=== PATIENT | female | born 1940 | race Caucasian/White ===

== ENCOUNTER 2019-01-04 11:36 | Emergency (ER) | payer MEDICARE, MEDICAID ==
[~2019-01-04] VITALS: Ht 149.9 cm; Wt 50.9 kg
[~2019-01-04 11:36] MED LIST: ALEN70TA60 PO; ATOR10TA87 PO; BUPR75TA11 PO; CLON-528 PO; FERR325T28 PO; HYDR-3965 PO; LAMO100T89 PO; OMEP-84 PO; OXYB10TA PO; QUET25TA PO
--- NOTE | 2019-01-04 12:06 | NUR ---
I FAXED [facility] FOR INFORMATION ON PT.
[2019-01-04 13:04] LABS: BASOPHILS % (AUTO) 0.5 % (0-1); EOSINOPHILS # (AUTO) 0.2 X10'3 (0-0.9); EOSINOPHILS % (AUTO) 3.1 % (0-6); HEMATOCRIT 27.2 % (35.0-45.0); LYMPHOCYTES # (AUTO) 0.9 X10'3 (1.1-4.8); LYMPHOCYTES % (AUTO) 14.5 % (21-51); MEAN CORPUSCULAR HEMOGLOBIN 29.4 PG (27.0-31.0); MEAN CORPUSCULAR HGB CONC 32.9 g/dL (33.0-36.5); MEAN CORPUSCULAR VOLUME 89.4 FL (78-98); MEAN PLATELET VOLUME 6.3 FL (7.4-10.4); MONOCYTES # (AUTO) 0.6 X10'3 (0-0.9); MONOCYTES % (AUTO) 10.1 % (2-12); NEUTROPHILS # (AUTO) 4.5 X10'3 (1.8-7.7); NEUTROPHILS % (AUTO) 71.8 % (42-75); PLATELET COUNT 269 X10'3 (140-440); RED BLOOD COUNT 3.04 X10'6 (4.20-5.60); RED CELL DISTRIBUTION WIDTH 17.2 % (11.5-14.5); WHITE BLOOD COUNT 6.3 X10'3 (4.5-11.0)
[2019-01-04 13:18] LABS: ALANINE AMINOTRANSFERASE 18 U/L (12-78); ALBUMIN 2.7 G/DL (3.4-5.0); ALKALINE PHOSPHATASE 81 IU/L (46-116); ANION GAP 9 (8-16); ASPARTATE AMINO TRANSFERASE 19 U/L (10-37); BILIRUBIN,TOTAL 0.4 MG/DL (0.1-1.0); BLOOD UREA NITROGEN 28 MG/DL (7-18); BUN/CREATININE RATIO 22.4 (6.6-38.0); CALCIUM 8.1 MG/DL (8.5-10.1); CHLORIDE 102 MMOL/L (99-107); CREATININE 1.25 MG/DL (0.40-0.90); GLUCOSE 107 MG/DL (70-104); POTASSIUM 4.2 MMOL/L (3.5-5.1); SODIUM 137 MMOL/L (135-145); TOTAL CARBON DIOXIDE 26.3 MMOL/L (24-32); TOTAL PROTEIN 5.5 G/DL (6.4-8.2); eGFR 41 ML/MIN
[2019-01-04] MEDS ORDERED: IPRA4AER IH (13:24)
[2019-01-04] MEDS ORDERED: ALBU8.5H8 IH (13:24)
[2019-01-04 13:32] VITALS: BP 103/59
== END 2019-01-05 | disposition home or self-care (01) ==
LOC: ER 01-05 07:27
DX: D64.9 Anemia, unspecified (principal); R06.00 Dyspnea, unspecified; R19.7 Diarrhea, unspecified; K92.1 Melena; R53.1 Weakness; E78.00 Pure hypercholesterolemia, unspecified; M19.90 Unspecified osteoarthritis, unspecified site; M81.0 Age-related osteoporosis without current pathological fracture; F12.90 Cannabis use, unspecified, uncomplicated; F15.90 Other stimulant use, unspecified, uncomplicated; Z88.8 Allergy status to other drugs, medicaments and biological substances; Z79.899 Other long term (current) drug therapy; Z87.891 Personal history of nicotine dependence; Z87.440 Personal history of urinary (tract) infections; Z90.89 Acquired absence of other organs; Z90.710 Acquired absence of both cervix and uterus
CPT/HCPCS: 36415; 71046; 80053; 85025; 93005; 99284

== ENCOUNTER 2019-01-29 10:11 | Emergency (ER) | payer MEDICARE, MEDICAID ==
[~2019-01-29] VITALS: Ht 149.9 cm; Wt 48.6 kg
[~2019-01-29 10:11] MED LIST changes: +ALBU8.5H8 IH; +IPRA4AER IH
[2019-01-29 11:00] LABS: BASOPHILS # (AUTO) 0.1 X10'3 (0-0.2); BASOPHILS % (AUTO) 0.8 % (0-1); EOSINOPHILS % (AUTO) 0.6 % (0-6); HEMATOCRIT 24.4 % (35.0-45.0); HEMOGLOBIN 7.8 g/dl (12.0-16.0); LYMPHOCYTES # (AUTO) 1.3 X10'3 (1.1-4.8); LYMPHOCYTES % (AUTO) 16.3 % (21-51); MEAN CORPUSCULAR HGB CONC 32.2 g/dL (33.0-36.5); MEAN PLATELET VOLUME 6.3 FL (7.4-10.4); MONOCYTES # (AUTO) 0.5 X10'3 (0-0.9); MONOCYTES % (AUTO) 6.2 % (2-12); NEUTROPHILS # (AUTO) 6.2 X10'3 (1.8-7.7); NEUTROPHILS % (AUTO) 76.1 % (42-75); PLATELET COUNT 407 X10'3 (140-440); RED BLOOD COUNT 2.71 X10'6 (4.20-5.60); RED CELL DISTRIBUTION WIDTH 17.9 % (11.5-14.5); WHITE BLOOD COUNT 8.1 X10'3 (4.5-11.0)
[2019-01-29 11:13] LABS: PROTHROMBIN TIME 9.7 SECONDS (9.0-12.0)
[2019-01-29 11:16] LABS: ALANINE AMINOTRANSFERASE 25 U/L (12-78); ALKALINE PHOSPHATASE 70 IU/L (46-116); ANION GAP 7 (8-16); ASPARTATE AMINO TRANSFERASE 22 U/L (10-37); BILIRUBIN,TOTAL 0.2 MG/DL (0.1-1.0); BLOOD UREA NITROGEN 24 MG/DL (7-18); BUN/CREATININE RATIO 20.2 (6.6-38.0); CALCIUM 8.9 MG/DL (8.5-10.1); CHLORIDE 103 MMOL/L (99-107); CREATININE 1.19 MG/DL (0.40-0.90); GLUCOSE 117 MG/DL (70-104); POTASSIUM 4.3 MMOL/L (3.5-5.1); SODIUM 140 MMOL/L (135-145); TOTAL CARBON DIOXIDE 30.5 MMOL/L (24-32); TOTAL PROTEIN 6.1 G/DL (6.4-8.2); eGFR 44 ML/MIN
[2019-01-29] MEDS ORDERED: acetaminophen 325mg tablet PO ONE (11:20)
[2019-01-29 12:59] VITALS: BP 110/65
[2019-01-29 13:14] VITALS: BP 110/57
--- NOTE | 2019-01-29 13:28 | NUR ---
PATIENT'S S.O. VIDEOTAPING PATIENT IN ROOM. ASKED S.O. TO PLEASE STOP VIDEOTAPING PATIENT BECAUSE IT IS AGAINST OUR POLICY. WHEN S.O. RETURNED TO ROOM AND HELD THE PATIENT'S RIGHT HAND HER SHAKING OF HER RIGHT SIDE DECREASED SIGNIFICANTLY. PATIENT MADE A STATEMENT TO HER S.O. WHILE STILL SHAKING HER BODY I ASKED PATIENT IF SHE WANTED A BLANKET AND SHE SAID "NO" PATIENT AGAIN ASKED A QUESTION BY S.O. AND ANSWERED IT APPROPRIATELY
[2019-01-29 13:44] VITALS: BP 128/90
[2019-01-29 14:30] VITALS: BP 128/90
[2019-01-29 14:43] VITALS: BP 128/90
[2019-01-29 15:37] VITALS: BP 128/95
== END 2019-01-29 16:05 | disposition home or self-care (01) ==
LOC: ER 10:12
DX: D64.9 Anemia, unspecified (principal); E78.00 Pure hypercholesterolemia, unspecified; M19.90 Unspecified osteoarthritis, unspecified site; M81.0 Age-related osteoporosis without current pathological fracture; F12.90 Cannabis use, unspecified, uncomplicated; F15.90 Other stimulant use, unspecified, uncomplicated; Z90.710 Acquired absence of both cervix and uterus; Z98.890 Other specified postprocedural states; Z87.891 Personal history of nicotine dependence; Z88.8 Allergy status to other drugs, medicaments and biological substances; Z79.899 Other long term (current) drug therapy
CPT/HCPCS: 36415; 36430; 80053; 85025; 85610; 86885; 86900; 86901; 86920; 99291; P9016

== ENCOUNTER 2019-07-19 08:13 | Emergency (ER) | payer MEDICARE, MEDICAID ==
[~2019-07-19] VITALS: Ht 149.9 cm; Wt 54.5 kg
[~2019-07-19 08:13] MED LIST changes: -IPRA4AER IH; -OXYB10TA PO; +OXYB10TA2 PO
[2019-07-19 10:17] VITALS: BP 133/101
== END 2019-07-19 10:15 | disposition home or self-care (01) ==
LOC: ER 08:14
DX: S90.112A Contusion of left great toe without damage to nail, initial encounter (principal); E78.00 Pure hypercholesterolemia, unspecified; E07.9 Disorder of thyroid, unspecified; M19.90 Unspecified osteoarthritis, unspecified site; F31.9 Bipolar disorder, unspecified; M81.0 Age-related osteoporosis without current pathological fracture; F12.90 Cannabis use, unspecified, uncomplicated; F15.90 Other stimulant use, unspecified, uncomplicated; Z90.710 Acquired absence of both cervix and uterus; Z88.8 Allergy status to other drugs, medicaments and biological substances; Z79.899 Other long term (current) drug therapy; Z98.890 Other specified postprocedural states; Z95.1 Presence of aortocoronary bypass graft; X58.XXXA Exposure to other specified factors, initial encounter; Y93.89 Activity, other specified; Y92.89 Other specified places as the place of occurrence of the external cause; Y99.8 Other external cause status
CPT/HCPCS: 73630; 99283

== ENCOUNTER 2019-08-11 13:16 | Emergency (ER) | payer MEDICARE, MEDICAID ==
[~2019-08-11] VITALS: Ht 149.9 cm; Wt 72.0 kg
[~2019-08-11 13:16] MED LIST changes: +LAMO100T PO; -LAMO100T89 PO
[2019-08-11] MEDS ORDERED: normal saline 1000ML IV soln IVB ONE (13:25)
[2019-08-11 13:57] LABS: BASOPHILS # (AUTO) 0.1 X10'3 (0-0.2); BASOPHILS % (AUTO) 0.4 % (0-1); EOSINOPHILS % (AUTO) 0.1 % (0-6); HEMATOCRIT 38.8 % (35.0-45.0); HEMOGLOBIN 12.8 g/dl (12.0-16.0); LYMPHOCYTES # (AUTO) 1.6 X10'3 (1.1-4.8); LYMPHOCYTES % (AUTO) 9.7 % (21-51); MEAN CORPUSCULAR HEMOGLOBIN 29.7 PG (27.0-31.0); MEAN CORPUSCULAR VOLUME 90.2 FL (78-98); MEAN PLATELET VOLUME 6.5 FL (7.4-10.4); MONOCYTES # (AUTO) 0.5 X10'3 (0-0.9); MONOCYTES % (AUTO) 3.3 % (2-12); NEUTROPHILS # (AUTO) 14.2 X10'3 (1.8-7.7); NEUTROPHILS % (AUTO) 86.5 % (42-75); PLATELET COUNT 354 X10'3 (140-440); RED CELL DISTRIBUTION WIDTH 14.6 % (11.5-14.5); WHITE BLOOD COUNT 16.4 X10'3 (4.5-11.0)
[2019-08-11 14:09] LABS: ALANINE AMINOTRANSFERASE 23 U/L (12-78); ALBUMIN 3.9 G/DL (3.4-5.0); ALBUMIN/GLOBULIN RATIO 1.1 (1.1-1.5); ALKALINE PHOSPHATASE 86 IU/L (46-116); ANION GAP 10 (8-16); ASPARTATE AMINO TRANSFERASE 21 U/L (10-37); BILIRUBIN,TOTAL 0.4 MG/DL (0.1-1.0); BLOOD UREA NITROGEN 17 MG/DL (7-18); BUN/CREATININE RATIO 15.6 (6.6-38.0); CALCIUM 9.8 MG/DL (8.5-10.1); CHLORIDE 104 MMOL/L (99-107); CREATININE 1.09 MG/DL (0.40-0.90); ETHANOL < 0.010 GM/DL (0.0-0.010); GLUCOSE 112 MG/DL (70-104); LIPASE 51 U/L (73-393); MAGNESIUM 1.8 MG/DL (1.5-2.4); POTASSIUM 3.6 MMOL/L (3.5-5.1); SODIUM 141 MMOL/L (135-145); TOTAL CARBON DIOXIDE 26.8 MMOL/L (24-32); TOTAL PROTEIN 7.5 G/DL (6.4-8.2); eGFR 49 ML/MIN
[2019-08-11 14:28] LABS: D-DIMER 0.46 MG/L FEU (0-0.50); PARTIAL THROMBOPLASTIN TIME 28 SECONDS (22-32)
[2019-08-11] MEDS ORDERED: azithromycin 250mg tablet PO ONE (15:15)
[2019-08-11] MEDS ORDERED: ondansetron/PF 4mg/2ml inj IV ONE (15:15)
[2019-08-11 15:25] VITALS: BP 129/46
[2019-08-11] MEDS ORDERED: AZIT500T PO (15:26)
[2019-08-11] MEDS ORDERED: ONDA4TAB6 PO (15:26)
[2019-08-11 15:41] LABS: URINE AMPHETAMINE SCREEN NEGATIVE (Neg); URINE BARBITUATE SCREEN NEGATIVE (Neg); URINE BENZODIAZEPINES SCREEN NEGATIVE (Neg); URINE CANNABINOID SCREEN NEGATIVE (Neg); URINE COCAINE SCREEN NEGATIVE (Neg); URINE METHADONE SCREEN NEGATIVE (Neg); URINE OPIATE SCREEN NEGATIVE (Neg); URINE PHENCYCLIDINE SCREEN NEGATIVE (Neg)
== END 2019-08-11 16:38 | disposition home or self-care (01) ==
LOC: ER 13:18
DX: J18.9 Pneumonia, unspecified organism (principal); K21.9 Gastro-esophageal reflux disease without esophagitis; K44.9 Diaphragmatic hernia without obstruction or gangrene; E78.00 Pure hypercholesterolemia, unspecified; M19.90 Unspecified osteoarthritis, unspecified site; F31.9 Bipolar disorder, unspecified; M81.0 Age-related osteoporosis without current pathological fracture; F12.90 Cannabis use, unspecified, uncomplicated; F15.90 Other stimulant use, unspecified, uncomplicated; R79.1 Abnormal coagulation profile; Z90.710 Acquired absence of both cervix and uterus; Z90.89 Acquired absence of other organs; Z98.890 Other specified postprocedural states; Z87.891 Personal history of nicotine dependence; Z88.8 Allergy status to other drugs, medicaments and biological substances; Z79.899 Other long term (current) drug therapy
CPT/HCPCS: 36415; 71045; 73630; 80053; 80305; 80320; 83690; 83735; 84484; 85025; 85379; 85610; 85730; 93005; 96374; 99284; J2405; J7030

== ENCOUNTER 2019-10-25 14:23 | Emergency (ER) | payer MEDICARE, MEDICAID ==
[~2019-10-25] VITALS: Ht 149.9 cm; Wt 52.3 kg
[~2019-10-25 14:23] MED LIST changes: +ONDA4TAB6 PO
[2019-10-25] MEDS ORDERED: TETanus/Pertussis (Acell)/Diphther VAC/PF (Tdap-Adult) 0.5ml syringe IMVAC ONE (15:25)
--- NOTE | 2019-10-25 15:27 | NUR ---
TRANSPORT PHONE NUMBER [facility] [phone]
[2019-10-25 15:38] LABS: BASOPHILS # (AUTO) 0.1 X10'3 (0-0.2); BASOPHILS % (AUTO) 1.1 % (0-1); EOSINOPHILS # (AUTO) 0.1 X10'3 (0-0.9); EOSINOPHILS % (AUTO) 1.2 % (0-6); HEMATOCRIT 33.5 % (35.0-45.0); HEMOGLOBIN 11.2 g/dl (12.0-16.0); LYMPHOCYTES # (AUTO) 1.2 X10'3 (1.1-4.8); LYMPHOCYTES % (AUTO) 19.8 % (21-51); MEAN CORPUSCULAR HEMOGLOBIN 30.2 PG (27.0-31.0); MEAN CORPUSCULAR HGB CONC 33.4 g/dL (33.0-36.5); MEAN CORPUSCULAR VOLUME 90.4 FL (78-98); MEAN PLATELET VOLUME 6.2 FL (7.4-10.4); MONOCYTES # (AUTO) 0.5 X10'3 (0-0.9); MONOCYTES % (AUTO) 7.8 % (2-12); NEUTROPHILS # (AUTO) 4.3 X10'3 (1.8-7.7); NEUTROPHILS % (AUTO) 70.1 % (42-75); PLATELET COUNT 286 X10'3 (140-440); RED BLOOD COUNT 3.71 X10'6 (4.20-5.60); RED CELL DISTRIBUTION WIDTH 15.1 % (11.5-14.5); WHITE BLOOD COUNT 6.1 X10'3 (4.5-11.0)
[2019-10-25 15:49] LABS: ALANINE AMINOTRANSFERASE 26 U/L (12-78); ALBUMIN 2.8 G/DL (3.4-5.0); ALBUMIN/GLOBULIN RATIO 0.9 (1.1-1.5); ALKALINE PHOSPHATASE 87 IU/L (46-116); ANION GAP 7 (8-16); ASPARTATE AMINO TRANSFERASE 34 U/L (10-37); BILIRUBIN,TOTAL 0.3 MG/DL (0.1-1.0); BLOOD UREA NITROGEN 8 MG/DL (7-18); BUN/CREATININE RATIO 6.5 (6.6-38.0); CALCIUM 8.7 MG/DL (8.5-10.1); CHLORIDE 100 MMOL/L (99-107); CREATININE 1.23 MG/DL (0.40-0.90); GLUCOSE 114 MG/DL (70-104); SODIUM 138 MMOL/L (135-145); TOTAL CARBON DIOXIDE 31.4 MMOL/L (24-32); eGFR 42 ML/MIN
[2019-10-25 15:50] LABS: PARTIAL THROMBOPLASTIN TIME 28 SECONDS (22-32)
[2019-10-25] MEDS ORDERED: potassium Cl 20 mEq SR tablet PO ONE (16:10)
[2019-10-25 16:31] LABS: CLARITY,URINE CLOUDY (Clear); COLOR,URINE YELLOW (Yellow); GLUCOSE, URINE NEGATIVE (Neg); KETONES,URINE NEGATIVE (Neg); LEUKOCYTE ESTERASE ,URINE SMALL (Neg); NITRITES, URINE NEGATIVE (Neg); OCCULT BLOOD,URINE NEGATIVE (Neg); PH,URINE 7.5 (4.8-8.0); PROTEIN,URINE NEGATIVE (Neg); UA COLLECTION TYPE CLN CATCH MIDSTREAM; UROBILINOGEN,URINE 0.2 E.U/dL (0.2-1.0)
[2019-10-25 16:39] LABS: MUCUS STRANDS FEW /LPF (Neg); SQUAMOUS EPITHELIAL CELL,UR MODERATE /LPF (FEW)
[2019-10-25 16:41] LABS: RBC,URINE 0-2 /HPF (0-2)
[2019-10-25 16:42] LABS: AMORPHOUS PHOSPHATES 1+; BACTERIA,URINE FEW /HPF (Neg)
--- NOTE | 2019-10-25 17:41 | NUR ---
[facility] CALLED BACK STATING HE IS UNABLE TO PROVIDE TRANSPORT BACK TO THE FACILITY.
[2019-10-25 17:51] VITALS: BP 127/68
[2019-10-25] MEDS ORDERED: POTA10CA44 PO (18:01)
== END 2019-10-25 18:19 | disposition home or self-care (01) ==
LOC: ER 14:23
DX: S06.2X0A Diffuse traumatic brain injury without loss of consciousness, initial encounter (principal); S01.01XA Laceration without foreign body of scalp, initial encounter; E87.6 Hypokalemia; F12.90 Cannabis use, unspecified, uncomplicated; F15.90 Other stimulant use, unspecified, uncomplicated; E78.00 Pure hypercholesterolemia, unspecified; M19.90 Unspecified osteoarthritis, unspecified site; F31.9 Bipolar disorder, unspecified; R79.1 Abnormal coagulation profile; Z90.89 Acquired absence of other organs; Z98.890 Other specified postprocedural states; Z95.1 Presence of aortocoronary bypass graft; Z88.8 Allergy status to other drugs, medicaments and biological substances; Z79.899 Other long term (current) drug therapy; Z90.710 Acquired absence of both cervix and uterus; W18.39XA Other fall on same level, initial encounter; Y93.89 Activity, other specified; Y92.89 Other specified places as the place of occurrence of the external cause; Y99.8 Other external cause status
CPT/HCPCS: 12001; 36415; 70450; 71045; 80053; 81001; 82948; 85025; 85610; 85730; 87077; 87088; 87186; 90471; 90715; 93005; 99284

== ENCOUNTER 2019-11-26 15:57 | Inpatient (IN) | payer MEDICARE, MEDICAID ==
[~2019-11-26] VITALS: Ht 149.9 cm; Wt 45.9 kg
[~2019-11-26 15:57] MED LIST changes: -ALBU8.5H8 IH; -OXYB10TA2 PO; +OXYB10TA30 PO
--- NOTE | 2019-11-26 16:34 | NUR ---
spoke with poison control and they recommended obtaining: tylenol levels, aspirin and basic chem/metabolic panel as well as iron levels. check a baseline thyroid level. supportive care for tx. observe pt. for 12 hours especially for extended release of seroquel or until symptoms resolve.
--- NOTE | 2019-11-26 16:35 | NUR ---
pt is alert and oriented x4.
[2019-11-26 17:36] LABS: BASOPHILS % (AUTO) 0.3 % (0-1); EOSINOPHILS % (AUTO) 0.7 % (0-6); HEMATOCRIT 30.6 % (35.0-45.0); LYMPHOCYTES # (AUTO) 1.2 X10'3 (1.1-4.8); LYMPHOCYTES % (AUTO) 27.1 % (21-51); MEAN CORPUSCULAR HEMOGLOBIN 28.9 PG (27.0-31.0); MEAN CORPUSCULAR HGB CONC 32.6 g/dL (33.0-36.5); MEAN CORPUSCULAR VOLUME 88.5 FL (78-98); MEAN PLATELET VOLUME 7.3 FL (7.4-10.4); MONOCYTES # (AUTO) 0.3 X10'3 (0-0.9); MONOCYTES % (AUTO) 6.4 % (2-12); NEUTROPHILS # (AUTO) 2.8 X10'3 (1.8-7.7); NEUTROPHILS % (AUTO) 65.5 % (42-75); PLATELET COUNT 181 X10'3 (140-440); RED BLOOD COUNT 3.45 X10'6 (4.20-5.60); WHITE BLOOD COUNT 4.3 X10'3 (4.5-11.0)
[2019-11-26] MEDS ORDERED: LEVO50TA66 PO (17:41)
[2019-11-26] MEDS ORDERED: FERR324T PO (17:41)
[2019-11-26] MEDS ORDERED: DONE5TAB7 PO (17:41)
[2019-11-26] MEDS ORDERED: ATOR20TA PO (17:41)
[2019-11-26] MEDS ORDERED: DULO-31 PO (17:41)
[2019-11-26] MEDS ORDERED: LAMO200T10 PO (17:41)
[2019-11-26] MEDS ORDERED: QUET200T5 PO (17:41)
[2019-11-26] MEDS ORDERED: TRAZ-251 PO (17:41)
[2019-11-26 17:42] LABS: CLARITY,URINE CLEAR (Clear); COLOR,URINE STRAW (Yellow); UA COLLECTION TYPE CLN CATCH MIDSTREAM
[2019-11-26 17:43] LABS: GLUCOSE, URINE NEGATIVE (Neg); KETONES,URINE NEGATIVE (Neg); LEUKOCYTE ESTERASE ,URINE NEGATIVE (Neg); NITRITES, URINE NEGATIVE (Neg); OCCULT BLOOD,URINE NEGATIVE (Neg); PROTEIN,URINE NEGATIVE (Neg); UROBILINOGEN,URINE 0.2 E.U/dL (0.2-1.0)
[2019-11-26 17:54] LABS: ALANINE AMINOTRANSFERASE 17 U/L (12-78); ALBUMIN 2.7 G/DL (3.4-5.0); ALBUMIN/GLOBULIN RATIO 0.9 (1.1-1.5); ALKALINE PHOSPHATASE 64 IU/L (46-116); ANION GAP 10 (8-16); ASPARTATE AMINO TRANSFERASE 21 U/L (10-37); BILIRUBIN,TOTAL 0.2 MG/DL (0.1-1.0); BLOOD UREA NITROGEN 16 MG/DL (7-18); BUN/CREATININE RATIO 15.7 (6.6-38.0); CALCIUM 7.9 MG/DL (8.5-10.1); CHLORIDE 106 MMOL/L (99-107); CREATININE 1.02 MG/DL (0.40-0.90); GLUCOSE 84 MG/DL (70-104); POTASSIUM 3.4 MMOL/L (3.5-5.1); SODIUM 140 MMOL/L (135-145); TOTAL CARBON DIOXIDE 24.2 MMOL/L (24-32); TOTAL PROTEIN 5.6 G/DL (6.4-8.2); eGFR 52 ML/MIN
[2019-11-26 18:00] LABS: URINE AMPHETAMINE SCREEN NEGATIVE (Neg); URINE BARBITUATE SCREEN NEGATIVE (Neg); URINE BENZODIAZEPINES SCREEN NEGATIVE (Neg); URINE CANNABINOID SCREEN NEGATIVE (Neg); URINE COCAINE SCREEN NEGATIVE (Neg); URINE METHADONE SCREEN NEGATIVE (Neg); URINE OPIATE SCREEN NEGATIVE (Neg); URINE PHENCYCLIDINE SCREEN NEGATIVE (Neg)
[2019-11-26 18:03] LABS: ACETAMINOPHEN < 2.0 UG/ML (10-30)
[2019-11-26 18:05] LABS: % IRON SATURATION 20 % (11-46); IRON 37 UG/DL (49-151); TOTAL IRON BINDING CAPACITY 184 UG/DL (259-388)
[2019-11-26] MEDS ORDERED: ondansetron/PF 4mg/2ml inj IV ONE (18:15)
--- NOTE | 2019-11-26 18:33 | NUR ---
Patient is resting comfortably in bed. She is looking about the room, opening and closing her mouth and proding her tongue at random. She is alert and oriented x4 but is slow to respond. She is updated on POC. VSS.
--- NOTE | 2019-11-26 20:00 | NUR ---
Pt assisted to bathroom and into green scrubs.
--- NOTE | 2019-11-26 20:38 | NUR ---
Pt pulled out piv.
--- NOTE | 2019-11-26 21:14 | NUR ---
Pt resting comfortably, respirations normal, no s/s of distress.
--- NOTE | 2019-11-26 21:48 | NUR ---
Pt pulled out second piv.
--- NOTE | 2019-11-26 22:02 | NUR ---
Pt attempting to squigle out of bed multiple times. Pt redirected.
--- NOTE | 2019-11-26 22:02 | NUR ---
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
[2019-11-26] MEDS: LORazepam 1 MG tablet PO STA ×2 (22:19→22:34)
[2019-11-26] MEDS: diphenhydrAMINE 25mg capsule PO STA ×2 (22:19→22:34)
[2019-11-26] MEDS: LORazepam 2 mg/ml vial IM STA ×2 (22:40→22:44)
[2019-11-26] MEDS ORDERED: LORazepam 2 mg/ml vial ONE (22:45)
[2019-11-26] MEDS ORDERED: LORazepam 2 mg/ml vial IM STA (22:48)
--- NOTE | 2019-11-26 23:31 | NUR ---
contacted by poison control and they recommended repeat iron levels and repeat EKG.
--- NOTE | 2019-11-27 01:13 | NUR ---
The patient appears to be sleeping.
--- NOTE | 2019-11-27 04:22 | NUR ---
The patient appears to be sleeping
--- NOTE | 2019-11-27 07:18 | NUR ---
PT IS SLEEPING, RESPIRATIONS SPONTANEOUS, EVEN AND UNLABORED, NO S/S OF DISTRESS, DISCOMFORT OR AGITATION.
--- NOTE | 2019-11-27 08:34 | NUR ---
BRAD FROM POISON CONTROL JESSICA TOPETE RECOMMENDED PT OBSERVATION UNTIL PT IS BACK TO BASELINE, CALLED PT SPOUSE BUDD [phone] LEFT MESSAGE TO DISCUSS PT MEDICAL HX AND BASELINE MENTATION.
--- NOTE | 2019-11-27 08:35 | NUR ---
Patient assessment completed and she was found to have extremely dry mouth and some blood on her lips. Her mouth was cleaned well with wet swabs. When nurse first tried to give her a drink of water she only bit the straw and did not seem to be able to understand that she needed to suck on it and not bite. Then when some water was brought to her mouth in a cup she was able to drink but coughed on it. Cleaned patients mouth again and used glycerine swabs as well. Then gave patient water with a straw again and this time she was able to drink. She was noted to be very thirsty but when she started to drink too much too fast she started coughing again. Nurse had to pull straw away when she was giving more water if patient seemed to be taking too much too fast. She was able to answer to question of if shw had pain and she staed "no pain" and then when asked if she knew where she was she was able to state only what town "[place]". When asked other questions she was eith unable to answer or her speech was so garbled that staff was not able to undersatnd her.
--- NOTE | 2019-11-27 10:13 | NUR ---
DR BARTLETT UPDATED TO PT NOT BEING AT BASELINE MENTATION AFTER SPEAKING WITH SPOUSE BUDD, SPOUSE STATES PT PERFORMS ADL'S, HAS NOT MEMORY ISSUES, AND GOES TO [facility] FOR SOCIAL INTERACTION. DR BARTLETT TO RE-EVALUATE PT.
--- NOTE | 2019-11-27 10:23 | NUR ---
DR BARTLETT EVALUATED PT AND WANTS PT MOVED TO MAIN ED, ORDERS TO FOLLOW FOR LABS, CT, XRAY. KATHRINE CHARGE NURSE NOTIFIED OF PT STATUS CHANGE.
--- NOTE | 2019-11-27 11:13 | NUR ---
PT WENT TO CT PER ORDERS AND THEN WAS MOVED FROM BED 25 TO BED 06, CALLED TO GIVE REPORT TO HALEIGH GRANGER AND SHE WILL CALL ME BACK WHEN SHE IS DONE IN PT ROOM.
[2019-11-27 11:59] LABS: ALANINE AMINOTRANSFERASE 18 U/L (12-78); ALBUMIN/GLOBULIN RATIO 0.9 (1.1-1.5); ALKALINE PHOSPHATASE 63 IU/L (46-116); ANION GAP 9 (8-16); BILIRUBIN,TOTAL 0.4 MG/DL (0.1-1.0); BLOOD UREA NITROGEN 9 MG/DL (7-18); BUN/CREATININE RATIO 9.8 (6.6-38.0); CALCIUM 7.9 MG/DL (8.5-10.1); CHLORIDE 104 MMOL/L (99-107); CREATININE 0.92 MG/DL (0.40-0.90); GLUCOSE 94 MG/DL (70-104); SODIUM 137 MMOL/L (135-145); TOTAL CARBON DIOXIDE 24.5 MMOL/L (24-32); TOTAL PROTEIN 6.2 G/DL (6.4-8.2); eGFR 59 ML/MIN
[2019-11-27 12:02] LABS: TROPONIN I < 0.04 NG/ML (0.0-0.05)
[2019-11-27 12:04] LABS: BASOPHILS % (AUTO) 0.3 % (0-1); EOSINOPHILS % (AUTO) 0.3 % (0-6); HEMATOCRIT 32.7 % (35.0-45.0); HEMOGLOBIN 10.7 g/dl (12.0-16.0); LYMPHOCYTES # (AUTO) 1.3 X10'3 (1.1-4.8); LYMPHOCYTES % (AUTO) 19.8 % (21-51); MEAN CORPUSCULAR HGB CONC 32.7 g/dL (33.0-36.5); MEAN CORPUSCULAR VOLUME 88.5 FL (78-98); MEAN PLATELET VOLUME 7.4 FL (7.4-10.4); MONOCYTES # (AUTO) 0.4 X10'3 (0-0.9); MONOCYTES % (AUTO) 5.6 % (2-12); NEUTROPHILS # (AUTO) 4.8 X10'3 (1.8-7.7); PLATELET COUNT 239 X10'3 (140-440); RED CELL DISTRIBUTION WIDTH 14.2 % (11.5-14.5); WHITE BLOOD COUNT 6.6 X10'3 (4.5-11.0)
[2019-11-27 12:08] LABS: ASPARTATE AMINO TRANSFERASE 34 U/L (10-37); POTASSIUM 3.8 MMOL/L (3.5-5.1)
--- NOTE | 2019-11-27 12:10 | NUR ---
PTS SATS HAVE BEEN GOING DOWN TO 88-89% ON RA. PT PLACED ON 2 L O2 MD TRI DUPREE UPDATED ON FINDINGS AND PT TO CONTINUE O2 ON 2 NC
[2019-11-27 12:19] LABS: CLARITY,URINE CLEAR (Clear); COLOR,URINE YELLOW (Yellow); GLUCOSE, URINE NEGATIVE (Neg); KETONES,URINE NEGATIVE (Neg); LEUKOCYTE ESTERASE ,URINE NEGATIVE (Neg); NITRITES, URINE NEGATIVE (Neg); OCCULT BLOOD,URINE NEGATIVE (Neg); PROTEIN,URINE NEGATIVE (Neg); UROBILINOGEN,URINE 0.2 E.U/dL (0.2-1.0)
[2019-11-27 12:22] LABS: PARTIAL THROMBOPLASTIN TIME 30 SECONDS (22-32)
[2019-11-27] MEDS ORDERED: normal saline 1000ML IV soln IV ONE (12:25)
[2019-11-27] MEDS ORDERED: CefTRIAXone 2gm/D5W 50ml 50 ML IV ONE (12:25)
[2019-11-27 12:35] LABS: UA COLLECTION TYPE CLN CATCH MIDSTREAM
[2019-11-27 12:45] LABS: LACTIC SEPSIS 0.7 MMOL/L (0.4-2.0)
[2019-11-27] MEDS ORDERED: haloperidol lactate 5mg/ml inj IM PRN (15:10)
[2019-11-27] MEDS ORDERED: LORazepam 2 mg/ml vial IV PRN (15:10)
[2019-11-27] MEDS ORDERED: magnesium hydroxide 30ml (MOM) UD suspension PO PRN (15:10)
[2019-11-27] MEDS ORDERED: ondansetron/PF 4mg/2ml inj IV PRN (15:10)
[2019-11-27] MEDS ORDERED: mag hydrox/Alum hydrox/simeth 30ml oral suspension PO PRN (15:10)
[2019-11-27] MEDS ORDERED: acetaminophen 325mg tablet PO PRN (15:10)
--- NOTE | 2019-11-27 15:31 | NUR ---
Justo Tinoco called to inquire after his . Staff advised that pt is waiting to be admitted to the floor, she is currently in bed #6 in ED. Justo Tinoco [phone]
[2019-11-27] MEDS: normal saline 1000ml 1,000 ML IV SCH (16:06)
[2019-11-27 18:40] VITALS: BP 147/72
[2019-11-27] MEDS: oxybutynin 5mg tablet PO SCH (20:00)
[2019-11-27] MEDS: donepezil 5mg tablet PO SCH (21:00)
[2019-11-27] MEDS: atorvastatin 20mg tablet PO SCH (21:00)
[2019-11-27] MEDS: lamoTRIgine 100mg tablet PO SCH (21:00)
[2019-11-27] MEDS: ferrous gluconate 324mg tablet PO SCH (21:00)
[2019-11-27] MEDS: traZODone 50mg tablet PO SCH (21:00)
[2019-11-27] MEDS: quetiapine 100mg tablet PO SCH (21:00)
[2019-11-27] MEDS: heparin, porcine 5000 units/ml vial SQ SCH ×2 (21:09→21:12)
[2019-11-27 22:00] VITALS: BP 136/70
[2019-11-28] MEDS: normal saline 1000ml 1,000 ML IV SCH ×3 (01:00→21:02)
[2019-11-28 02:00] VITALS: BP 124/60
[2019-11-28 06:00] VITALS: BP 129/70
[2019-11-28 06:21] LABS: BASOPHILS % (AUTO) 0.6 % (0-1); EOSINOPHILS # (AUTO) 0.1 X10'3 (0-0.9); EOSINOPHILS % (AUTO) 1.4 % (0-6); HEMATOCRIT 33.7 % (35.0-45.0); HEMOGLOBIN 11.2 g/dl (12.0-16.0); LYMPHOCYTES # (AUTO) 1.8 X10'3 (1.1-4.8); LYMPHOCYTES % (AUTO) 35.8 % (21-51); MEAN CORPUSCULAR HEMOGLOBIN 29.2 PG (27.0-31.0); MEAN CORPUSCULAR HGB CONC 33.2 g/dL (33.0-36.5); MEAN PLATELET VOLUME 6.7 FL (7.4-10.4); MONOCYTES # (AUTO) 0.3 X10'3 (0-0.9); MONOCYTES % (AUTO) 6.8 % (2-12); NEUTROPHILS # (AUTO) 2.8 X10'3 (1.8-7.7); NEUTROPHILS % (AUTO) 55.4 % (42-75); PLATELET COUNT 264 X10'3 (140-440); RED BLOOD COUNT 3.83 X10'6 (4.20-5.60); RED CELL DISTRIBUTION WIDTH 14.2 % (11.5-14.5); WHITE BLOOD COUNT 5.1 X10'3 (4.5-11.0)
--- NOTE | 2019-11-28 06:22 | NUR ---
Problems reprioritized. Patient report given, questions answered & plan of care reviewed with ELKIN BRUSH.
--- NOTE | 2019-11-28 06:23 | NUR ---
Patient in room PCU 3011. I have received report from ELKIN Dixon and had the opportunity to ask questions and assume patient care.
[2019-11-28 06:38] LABS: ALBUMIN 2.9 G/DL (3.4-5.0); ANION GAP 10 (8-16); BLOOD UREA NITROGEN 6 MG/DL (7-18); BUN/CREATININE RATIO 7.3 (6.6-38.0); CALCIUM 7.5 MG/DL (8.5-10.1); CHLORIDE 103 MMOL/L (99-107); CREATININE 0.82 MG/DL (0.40-0.90); GLUCOSE 70 MG/DL (70-104); POTASSIUM 3.1 MMOL/L (3.5-5.1); SODIUM 137 MMOL/L (135-145); TOTAL CARBON DIOXIDE 23.7 MMOL/L (24-32); eGFR 67 ML/MIN
[2019-11-28] MEDS: duloxetine 30mg CAPSULE.DR PO SCH (08:34)
[2019-11-28] MEDS: levoTHYROXINE 25mcg tablet PO SCH (08:34)
[2019-11-28] MEDS: ferrous gluconate 324mg tablet PO SCH ×3 (08:34→20:56)
[2019-11-28] MEDS: oxybutynin 5mg tablet PO SCH ×2 (08:35→20:56)
--- NOTE | 2019-11-28 08:48 | NUR ---
Paged Kate regarding needing potassium replacement protocol PAGER ID: [phone] MESSAGE: [phone]: Teri Wylie: Pt does not have potassium replacement orders. Pt morning potassium was 3.1. Kindly advise! -Jailyn [phone]
[2019-11-28] MEDS ORDERED: potassium Cl 20 mEq SR tablet PO PRN (08:50)
[2019-11-28] MEDS ORDERED: potassium CL 10mEq/100ml bag 100 ML IV PRN (08:50)
[2019-11-28] MEDS ORDERED: magnesium 4gm in 100ml NS 100 ML IV PRN (08:50)
[2019-11-28] MEDS: K and/or MAG REPLACEMENT MC SCH ×2 (09:42→20:00)
--- NOTE | 2019-11-28 09:45 | NUR ---
New orders to place pt on low-fat, mechanical soft diet from NPO status. Completed a bedside swallow, pt did fine.
[2019-11-28] MEDS: potassium Cl 20 mEq SR tablet PO PRN ×3 (10:42→20:57)
[2019-11-28 12:00] VITALS: BP 108/64
[2019-11-28 15:00] VITALS: BP 137/85
[2019-11-28 18:00] VITALS: BP 135/104
--- NOTE | 2019-11-28 18:25 | NUR ---
Problems reprioritized. Patient report given, questions answered & plan of care reviewed with ELKIN Lopez.
--- NOTE | 2019-11-28 18:25 | NUR ---
Patient in room PCU 3011. I have received report from ELKIN Glaser and had the opportunity to ask questions and assume patient care. Patient is alert and oriented x 4, denies CP, SOB, dizziness, and n/v. Patient also denied suicidal thoughts. Patient has sitter in place
[2019-11-28] MEDS: lamoTRIgine 100mg tablet PO SCH (20:55)
[2019-11-28] MEDS: donepezil 5mg tablet PO SCH (20:56)
[2019-11-28] MEDS: atorvastatin 20mg tablet PO SCH (20:56)
[2019-11-28] MEDS: traZODone 50mg tablet PO SCH (20:57)
[2019-11-28] MEDS: quetiapine 100mg tablet PO SCH (21:01)
[2019-11-28] MEDS: heparin, porcine 5000 units/ml vial SQ SCH (21:01)
[2019-11-28 22:00] VITALS: BP 131/57
[2019-11-29 02:00] VITALS: BP 134/84
[2019-11-29 05:33] LABS: ALBUMIN 2.3 G/DL (3.4-5.0); ANION GAP 4 (8-16); BLOOD UREA NITROGEN 8 MG/DL (7-18); BUN/CREATININE RATIO 9.6 (6.6-38.0); CALCIUM 7.8 MG/DL (8.5-10.1); CHLORIDE 114 MMOL/L (99-107); CREATININE 0.83 MG/DL (0.40-0.90); GLUCOSE 90 MG/DL (70-104); MAGNESIUM 1.6 MG/DL (1.5-2.4); POTASSIUM 4.6 MMOL/L (3.5-5.1); SODIUM 143 MMOL/L (135-145); TOTAL CARBON DIOXIDE 25.5 MMOL/L (24-32); eGFR 66 ML/MIN
[2019-11-29 05:36] LABS: BASOPHILS % (AUTO) 0.8 % (0-1); EOSINOPHILS # (AUTO) 0.2 X10'3 (0-0.9); EOSINOPHILS % (AUTO) 5.1 % (0-6); HEMATOCRIT 31.1 % (35.0-45.0); HEMOGLOBIN 10.3 g/dl (12.0-16.0); LYMPHOCYTES # (AUTO) 1.6 X10'3 (1.1-4.8); LYMPHOCYTES % (AUTO) 38.5 % (21-51); MEAN CORPUSCULAR HEMOGLOBIN 29.2 PG (27.0-31.0); MEAN CORPUSCULAR HGB CONC 33.1 g/dL (33.0-36.5); MEAN CORPUSCULAR VOLUME 88.3 FL (78-98); MEAN PLATELET VOLUME 7.1 FL (7.4-10.4); MONOCYTES # (AUTO) 0.4 X10'3 (0-0.9); MONOCYTES % (AUTO) 8.8 % (2-12); NEUTROPHILS % (AUTO) 46.8 % (42-75); PLATELET COUNT 252 X10'3 (140-440); RED BLOOD COUNT 3.52 X10'6 (4.20-5.60); WHITE BLOOD COUNT 4.3 X10'3 (4.5-11.0)
[2019-11-29 06:00] VITALS: BP 136/69
--- NOTE | 2019-11-29 06:17 | NUR ---
Patient in room PCU 3011. I have received report from ELKIN Lopez and had the opportunity to ask questions and assume patient care.
--- NOTE | 2019-11-29 06:19 | NUR ---
Problems reprioritized. Patient report given, questions answered & plan of care reviewed with ELKIN Glaser. Patient stable at shift change
[2019-11-29] MEDS: K and/or MAG REPLACEMENT MC SCH ×2 (08:00→20:00)
[2019-11-29] MEDS: heparin, porcine 5000 units/ml vial SQ SCH ×2 (09:39→20:20)
[2019-11-29] MEDS: levoTHYROXINE 25mcg tablet PO SCH (09:40)
[2019-11-29] MEDS: duloxetine 30mg CAPSULE.DR PO SCH (09:40)
[2019-11-29] MEDS: oxybutynin 5mg tablet PO SCH ×3 (09:40→20:17)
[2019-11-29] MEDS: ferrous gluconate 324mg tablet PO SCH ×3 (09:40→20:17)
[2019-11-29] MEDS: normal saline 1000ml 1,000 ML IV SCH ×2 (09:41→17:10)
[2019-11-29 15:00] VITALS: BP 141/78
--- NOTE | 2019-11-29 16:39 | NUR ---
Paged Kate PAGER ID: [phone] MESSAGE: [phone]: Teri Wylie: Currently awaiting placement! Jailyn -[phone]
[2019-11-29 18:00] VITALS: BP 129/72
--- NOTE | 2019-11-29 18:23 | NUR ---
Problems reprioritized. Patient report given, questions answered & plan of care reviewed with ELKIN Vernon.
--- NOTE | 2019-11-29 19:00 | NUR ---
Patient in room PCU 3011. I have received report from am rn and had the opportunity to ask questions and assume patient care.
[2019-11-29] MEDS: donepezil 5mg tablet PO SCH (20:16)
[2019-11-29] MEDS: traZODone 50mg tablet PO SCH (20:17)
[2019-11-29] MEDS: lamoTRIgine 100mg tablet PO SCH (20:17)
[2019-11-29] MEDS: atorvastatin 20mg tablet PO SCH (20:17)
[2019-11-29] MEDS: quetiapine 100mg tablet PO SCH (20:18)
[2019-11-29 22:00] VITALS: BP 95/51
[2019-11-30 02:00] VITALS: BP 92/51
[2019-11-30] MEDS: normal saline 1000ml 1,000 ML IV SCH ×3 (03:38→23:10)
[2019-11-30 05:28] LABS: BASOPHILS % (AUTO) 0.6 % (0-1); EOSINOPHILS # (AUTO) 0.2 X10'3 (0-0.9); EOSINOPHILS % (AUTO) 5.2 % (0-6); HEMATOCRIT 32.2 % (35.0-45.0); HEMOGLOBIN 10.4 g/dl (12.0-16.0); LYMPHOCYTES # (AUTO) 1.7 X10'3 (1.1-4.8); LYMPHOCYTES % (AUTO) 44.8 % (21-51); MEAN CORPUSCULAR HEMOGLOBIN 28.9 PG (27.0-31.0); MEAN CORPUSCULAR HGB CONC 32.5 g/dL (33.0-36.5); MEAN CORPUSCULAR VOLUME 88.9 FL (78-98); MEAN PLATELET VOLUME 6.7 FL (7.4-10.4); MONOCYTES # (AUTO) 0.4 X10'3 (0-0.9); MONOCYTES % (AUTO) 9.7 % (2-12); NEUTROPHILS # (AUTO) 1.5 X10'3 (1.8-7.7); NEUTROPHILS % (AUTO) 39.7 % (42-75); PLATELET COUNT 229 X10'3 (140-440); RED BLOOD COUNT 3.62 X10'6 (4.20-5.60); RED CELL DISTRIBUTION WIDTH 14.4 % (11.5-14.5); WHITE BLOOD COUNT 3.9 X10'3 (4.5-11.0)
[2019-11-30 05:39] LABS: ALBUMIN 2.3 G/DL (3.4-5.0); ANION GAP 7 (8-16); BLOOD UREA NITROGEN 5 MG/DL (7-18); BUN/CREATININE RATIO 5.2 (6.6-38.0); CALCIUM 8.4 MG/DL (8.5-10.1); CHLORIDE 113 MMOL/L (99-107); CREATININE 0.96 MG/DL (0.40-0.90); GLUCOSE 91 MG/DL (70-104); MAGNESIUM 1.6 MG/DL (1.5-2.4); POTASSIUM 3.7 MMOL/L (3.5-5.1); SODIUM 143 MMOL/L (135-145); TOTAL CARBON DIOXIDE 22.9 MMOL/L (24-32); eGFR 56 ML/MIN
--- NOTE | 2019-11-30 06:20 | NUR ---
Patient in room PCU 3011. I have received report from ELKIN Vernon and had the opportunity to ask questions and assume patient care.
[2019-11-30 07:00] VITALS: BP 104/60
[2019-11-30] MEDS: K and/or MAG REPLACEMENT MC SCH ×2 (08:52→20:00)
[2019-11-30] MEDS: heparin, porcine 5000 units/ml vial SQ SCH ×2 (08:53→20:52)
[2019-11-30] MEDS: levoTHYROXINE 25mcg tablet PO SCH (08:53)
[2019-11-30] MEDS: ferrous gluconate 324mg tablet PO SCH ×3 (08:54→20:47)
[2019-11-30] MEDS: oxybutynin 5mg tablet PO SCH ×3 (08:54→20:47)
[2019-11-30] MEDS: duloxetine 30mg CAPSULE.DR PO SCH (08:54)
--- NOTE | 2019-11-30 10:41 | NUR ---
Spoke to ELKIN Sheriff at [facility] in [place] to give report on pt. Awaiting call from facility to admit pt
[2019-11-30 11:00] VITALS: BP 117/64
[2019-11-30 15:00] VITALS: BP 112/63
--- NOTE | 2019-11-30 15:45 | NUR ---
Paged Violette PAGER ID: [phone] MESSAGE: [phone]: Ila Wylie - Pt c/o headaches. May pt receive Tylenol? Kindly advise! - Jailyn [phone]
--- NOTE | 2019-11-30 16:25 | NUR ---
Paged Kate PAGER ID: [phone] MESSAGE: [phone]: Teri Wylie - Pt c/o headaches. May pt receive Tylenol? Kindly advise! - Jailyn [phone]
--- NOTE | 2019-11-30 16:26 | NUR ---
New orders for 650mg Tylenol PRN 6 hrs from Kate
[2019-11-30] MEDS ORDERED: acetaminophen 325mg tablet PO PRN (16:30)
[2019-11-30 18:00] VITALS: BP 134/65
--- NOTE | 2019-11-30 18:00 | NUR ---
Received report from Jailyn GRANGER. assumed care of patient.
--- NOTE | 2019-11-30 18:06 | NUR ---
Problems reprioritized. Patient report given, questions answered & plan of care reviewed with ELKIN Pop.
[2019-11-30] MEDS: atorvastatin 20mg tablet PO SCH (20:47)
[2019-11-30] MEDS: donepezil 5mg tablet PO SCH (20:47)
[2019-11-30] MEDS: lamoTRIgine 100mg tablet PO SCH (20:47)
[2019-11-30] MEDS: traZODone 50mg tablet PO SCH (20:47)
[2019-11-30] MEDS: quetiapine 100mg tablet PO SCH (20:49)
[2019-11-30 22:00] VITALS: BP 101/51
[2019-12-01] MEDS: normal saline 1000ml 1,000 ML IV SCH ×3 (00:30→20:25)
[2019-12-01 02:00] VITALS: BP 97/51
[2019-12-01 05:38] LABS: BASOPHILS % (AUTO) 0.6 % (0-1); EOSINOPHILS # (AUTO) 0.2 X10'3 (0-0.9); EOSINOPHILS % (AUTO) 5.6 % (0-6); HEMATOCRIT 30.2 % (35.0-45.0); HEMOGLOBIN 10.2 g/dl (12.0-16.0); LYMPHOCYTES # (AUTO) 1.7 X10'3 (1.1-4.8); LYMPHOCYTES % (AUTO) 39.7 % (21-51); MEAN CORPUSCULAR HGB CONC 33.7 g/dL (33.0-36.5); MEAN CORPUSCULAR VOLUME 89.1 FL (78-98); MEAN PLATELET VOLUME 6.8 FL (7.4-10.4); MONOCYTES # (AUTO) 0.4 X10'3 (0-0.9); MONOCYTES % (AUTO) 9.4 % (2-12); NEUTROPHILS # (AUTO) 1.9 X10'3 (1.8-7.7); NEUTROPHILS % (AUTO) 44.7 % (42-75); PLATELET COUNT 249 X10'3 (140-440); RED BLOOD COUNT 3.39 X10'6 (4.20-5.60); RED CELL DISTRIBUTION WIDTH 14.4 % (11.5-14.5); WHITE BLOOD COUNT 4.3 X10'3 (4.5-11.0)
[2019-12-01 05:44] LABS: ALBUMIN 2.2 G/DL (3.4-5.0); ANION GAP 8 (8-16); BLOOD UREA NITROGEN 6 MG/DL (7-18); BUN/CREATININE RATIO 6.7 (6.6-38.0); CALCIUM 8.1 MG/DL (8.5-10.1); CHLORIDE 112 MMOL/L (99-107); GLUCOSE 89 MG/DL (70-104); MAGNESIUM 1.5 MG/DL (1.5-2.4); POTASSIUM 3.7 MMOL/L (3.5-5.1); SODIUM 144 MMOL/L (135-145); TOTAL CARBON DIOXIDE 24.2 MMOL/L (24-32); eGFR 60 ML/MIN
--- NOTE | 2019-12-01 06:00 | NUR ---
Gave report to Rafaela GRANGER
--- NOTE | 2019-12-01 06:30 | NUR ---
Patient in room PCU 3011. I have received report from Kiesha GRANGER and had the opportunity to ask questions and assume patient care.
[2019-12-01 07:00] VITALS: BP 121/62
[2019-12-01] MEDS: K and/or MAG REPLACEMENT MC SCH ×2 (08:00→20:00)
[2019-12-01] MEDS: ferrous gluconate 324mg tablet PO SCH ×3 (08:25→20:14)
[2019-12-01] MEDS: duloxetine 30mg CAPSULE.DR PO SCH (08:26)
[2019-12-01] MEDS: oxybutynin 5mg tablet PO SCH ×3 (08:26→20:14)
[2019-12-01] MEDS: levoTHYROXINE 25mcg tablet PO SCH (08:26)
[2019-12-01] MEDS: heparin, porcine 5000 units/ml vial SQ SCH ×2 (08:26→20:15)
[2019-12-01 11:00] VITALS: BP 144/75
--- NOTE | 2019-12-01 11:04 | NUR ---
Received verbal order to remove olaf from head which occured from a fall over a month ago. 11 olaf removed without incident. Patient did not complain about pain during procedure. Noted large scab. Skin intact. No bleeding noted. Will continue to monitor.
[2019-12-01 15:00] VITALS: BP 123/69
[2019-12-01 18:00] VITALS: BP 141/78
--- NOTE | 2019-12-01 18:24 | NUR ---
Problems reprioritized. Patient report given, questions answered & plan of care reviewed with Sujatha GRANGER.
[2019-12-01] MEDS: lamoTRIgine 100mg tablet PO SCH (20:12)
[2019-12-01] MEDS: traZODone 50mg tablet PO SCH (20:13)
[2019-12-01] MEDS: donepezil 5mg tablet PO SCH (20:14)
[2019-12-01] MEDS: atorvastatin 20mg tablet PO SCH (20:14)
[2019-12-01] MEDS: quetiapine 100mg tablet PO SCH (20:14)
[2019-12-01 22:00] VITALS: BP 135/64
[2019-12-02 02:00] VITALS: BP 107/50
[2019-12-02] MEDS: normal saline 1000ml 1,000 ML IV SCH (04:52)
[2019-12-02 06:13] LABS: BASOPHILS % (AUTO) 0.8 % (0-1); EOSINOPHILS # (AUTO) 0.3 X10'3 (0-0.9); EOSINOPHILS % (AUTO) 6.6 % (0-6); HEMATOCRIT 28.8 % (35.0-45.0); HEMOGLOBIN 9.6 g/dl (12.0-16.0); LYMPHOCYTES # (AUTO) 1.6 X10'3 (1.1-4.8); MEAN CORPUSCULAR HEMOGLOBIN 29.4 PG (27.0-31.0); MEAN CORPUSCULAR HGB CONC 33.4 g/dL (33.0-36.5); MEAN CORPUSCULAR VOLUME 88.2 FL (78-98); MEAN PLATELET VOLUME 6.9 FL (7.4-10.4); MONOCYTES # (AUTO) 0.3 X10'3 (0-0.9); NEUTROPHILS # (AUTO) 1.6 X10'3 (1.8-7.7); NEUTROPHILS % (AUTO) 42.6 % (42-75); PLATELET COUNT 246 X10'3 (140-440); RED BLOOD COUNT 3.26 X10'6 (4.20-5.60); RED CELL DISTRIBUTION WIDTH 14.1 % (11.5-14.5); WHITE BLOOD COUNT 3.8 X10'3 (4.5-11.0)
--- NOTE | 2019-12-02 06:22 | NUR ---
Patient in room PCU 3011. I have received report from February and had the opportunity to ask questions and assume patient care.
[2019-12-02 06:28] LABS: ALBUMIN 2.2 G/DL (3.4-5.0); ANION GAP 7 (8-16); BLOOD UREA NITROGEN 5 MG/DL (7-18); BUN/CREATININE RATIO 5.4 (6.6-38.0); CALCIUM 8.2 MG/DL (8.5-10.1); CHLORIDE 111 MMOL/L (99-107); CREATININE 0.93 MG/DL (0.40-0.90); GLUCOSE 87 MG/DL (70-104); MAGNESIUM 1.4 MG/DL (1.5-2.4); POTASSIUM 3.3 MMOL/L (3.5-5.1); SODIUM 145 MMOL/L (135-145); TOTAL CARBON DIOXIDE 26.7 MMOL/L (24-32); eGFR 58 ML/MIN
[2019-12-02 07:00] VITALS: BP 127/58
[2019-12-02] MEDS: oxybutynin 5mg tablet PO SCH ×2 (07:36→12:33)
[2019-12-02] MEDS: duloxetine 30mg CAPSULE.DR PO SCH (07:36)
[2019-12-02] MEDS: ferrous gluconate 324mg tablet PO SCH ×2 (07:36→12:33)
[2019-12-02] MEDS: levoTHYROXINE 25mcg tablet PO SCH (07:36)
[2019-12-02] MEDS: heparin, porcine 5000 units/ml vial SQ SCH (07:37)
[2019-12-02] MEDS ORDERED: K and/or MAG REPLACEMENT MC SCH (08:00)
[2019-12-02] MEDS: K and/or MAG REPLACEMENT MC SCH (08:00)
[2019-12-02] MEDS ORDERED: potassium CL 10mEq/100ml bag 100 ML IV PRN (10:05)
[2019-12-02] MEDS ORDERED: potassium Cl 20 mEq SR tablet PO PRN (10:05)
[2019-12-02] MEDS ORDERED: magnesium Cl slow-release 64mg tablet PO PRN (10:10)
[2019-12-02] MEDS ORDERED: magnesium 4gm in 100ml NS 100 ML IV PRN (10:10)
[2019-12-02] MEDS: potassium Cl 20 mEq SR tablet PO PRN ×2 (10:26→15:27)
[2019-12-02 11:00] VITALS: BP 130/89
--- NOTE | 2019-12-02 14:00 | NUR ---
Initial: Pt admitted for suicide attempts and suicidal ideation awaiting transfer to [facility]. Pt currently on low fat diet with soft to chew food, eating 50-75%. LBM 11/30. No nutrition concerns at this time. Will continue to monitor. Recommendations: 1. continue low fat soft to chew food diet 2. bowel care as needed 3. weight per rx Addendum: 12/02/19 at 1400 by Wing Henrietta KLEIN Amended: Links added. Addendum: 12/02/19 at [address] ERNIE Adkins
--- NOTE | 2019-12-02 14:37 | NUR ---
Page sent to Dr. Gill PAGER ID: [phone] MESSAGE: [phone] Teri HELM, pt. evaluated by Mental Health and stated she is safe to discharge home when her 5150 expires. Rafaela GRANGER [phone]
[2019-12-02 15:00] VITALS: BP 140/65
--- NOTE | 2019-12-02 16:14 | NUR ---
Pt. notified of orders to discharge home. Patients building principal will not be able to pick her up until 6:30-7ish per the patient.
--- NOTE | 2019-12-02 17:11 | NUR ---
Discharge medications and instructions reviewed with patient. All discharge paperwork signed since her pyrometer temperature regulator wont be able to pick her up until 6:30-7:00 which will be during shift change. Patient verbalized understanding regarding mental health needs and importance of going to her FU appointment. Pt. stated she believes she already has an appointment, due to the holiday she will call tomorrow. Tele and EJ not removed as we are still monitoring the patient until her pyrometer temperature regulator arrives. All belongings packed and ready to go. Medications retrieved from pharmacy. Will report off to NOC shift.
[2019-12-02 18:30] VITALS: BP 152/76
--- NOTE | 2019-12-02 18:48 | NUR ---
Patients quill fixer arrived during change of shift to bean picker patient,Patient report given to Oneida GRANGER who is removing EJ and tele.
--- NOTE | 2019-12-02 19:03 | NUR ---
IV DC tip appeared intact. pt dressed self. wheelchair to lobby with PCT. no questions or concerns. Stated he thankfulness to the staff.
--- NOTE | 2019-12-04 09:53 | NUR ---
Case Management DC follow up: LM/VM asking pt to rtn call if questions/concerns, post DC status
== END 2019-12-02 19:00 | disposition home or self-care (01) | DRG 917 ==
LOC: ER 15:57 → ED HOLD 11-27 15:10 → PCU 3S 11-27 18:40
PROVIDERS: ADMIT Family Medicine; ATTEND Family Medicine
PROC: 0HQ0XZZ Repair Scalp Skin, External Approach (ICD-10-PCS; principal; 2019-12-01)
DX: T50.902A Poisoning by unspecified drugs, medicaments and biological substances, intentional self-harm, initial encounter (principal); G92 Toxic encephalopathy; D64.9 Anemia, unspecified; E03.9 Hypothyroidism, unspecified; E78.00 Pure hypercholesterolemia, unspecified; F31.9 Bipolar disorder, unspecified; M81.0 Age-related osteoporosis without current pathological fracture; F03.90 Unspecified dementia, unspecified severity, without behavioral disturbance, psychotic disturbance, mood disturbance, and anxiety; E87.6 Hypokalemia; S01.01XA Laceration without foreign body of scalp, initial encounter; M19.90 Unspecified osteoarthritis, unspecified site; E78.5 Hyperlipidemia, unspecified; Z82.0 Family history of epilepsy and other diseases of the nervous system; Y92.89 Other specified places as the place of occurrence of the external cause; Z82.49 Family history of ischemic heart disease and other diseases of the circulatory system; Z79.899 Other long term (current) drug therapy; Z90.710 Acquired absence of both cervix and uterus; Z95.1 Presence of aortocoronary bypass graft; Z88.8 Allergy status to other drugs, medicaments and biological substances
CPT/HCPCS: 36415; 70450; 71045; 80048; 80053; 80305; 80329; 81003; 82140; 83540; 83550; 83605; 83735; 84145; 84443; 84484; 85025; 85610; 85730; 87040; 87081; 93005; 96365; 96375; 99285; G0378; J0696; J1644; J2060; J2405; J7030; Q0163

== ENCOUNTER 2020-10-22 09:28 | Emergency (ER) | payer MEDICARE, MEDICAID ==
[~2020-10-22] VITALS: Ht 149.9 cm; Wt 57.3 kg
[~2020-10-22 09:28] MED LIST changes: -ALEN70TA60 PO; -ATOR10TA87 PO; +ATOR20TA PO; -BUPR75TA11 PO; -CLON-528 PO; +DONE5TAB7 PO; +DULO-31 PO; +FERR324T PO; -FERR325T28 PO; -HYDR-3965 PO; -LAMO100T PO; +LAMO200T10 PO; +LEVO50TA66 PO; -OMEP-84 PO; -ONDA4TAB6 PO; +QUET200T5 PO; -QUET25TA PO; +TRAZ-251 PO
[2020-10-22] MEDS ORDERED: ibuprofen tablet 400 MG TABLET PO ONE (09:40)
[2020-10-22 10:15] LABS: BASOPHILS % (AUTO) 0.4 % (0-1); EOSINOPHILS % (AUTO) 0.8 % (0-6); HEMATOCRIT 32.9 % (35.0-45.0); HEMOGLOBIN 11.2 g/dl (12.0-16.0); LYMPHOCYTES # (AUTO) 0.3 X10'3 (1.1-4.8); LYMPHOCYTES % (AUTO) 6.9 % (21-51); MEAN CORPUSCULAR HEMOGLOBIN 30.2 PG (27.0-31.0); MEAN CORPUSCULAR HGB CONC 34.1 g/dL (33.0-36.5); MEAN CORPUSCULAR VOLUME 88.6 FL (78-98); MEAN PLATELET VOLUME 6.4 FL (7.4-10.4); MONOCYTES # (AUTO) 0.3 X10'3 (0-0.9); NEUTROPHILS # (AUTO) 3.6 X10'3 (1.8-7.7); NEUTROPHILS % (AUTO) 84.9 % (42-75); PLATELET COUNT 182 X10'3 (140-440); RED BLOOD COUNT 3.72 X10'6 (4.20-5.60); RED CELL DISTRIBUTION WIDTH 14.4 % (11.5-14.5); WHITE BLOOD COUNT 4.2 X10'3 (4.5-11.0)
[2020-10-22 10:20] LABS: ALBUMIN 3.1 G/DL (3.4-5.0); ANION GAP 8 (8-16); BLOOD UREA NITROGEN 18 MG/DL (7-18); BUN/CREATININE RATIO 19.8 (6.6-38.0); CALCIUM 8.5 MG/DL (8.5-10.1); CHLORIDE 104 MMOL/L (99-107); CREATININE 0.91 MG/DL (0.40-0.90); GLUCOSE 121 MG/DL (70-104); POTASSIUM 3.6 MMOL/L (3.5-5.1); SODIUM 138 MMOL/L (135-145); TOTAL CARBON DIOXIDE 25.8 MMOL/L (24-32); eGFR 59 ML/MIN
[2020-10-22 10:54] VITALS: BP 117/64
== END 2020-10-22 10:57 | disposition home or self-care (01) ==
LOC: ER 09:29
DX: M79.10 Myalgia, unspecified site (principal); E78.00 Pure hypercholesterolemia, unspecified; M19.90 Unspecified osteoarthritis, unspecified site; F31.9 Bipolar disorder, unspecified; F12.90 Cannabis use, unspecified, uncomplicated; F15.90 Other stimulant use, unspecified, uncomplicated; Z87.440 Personal history of urinary (tract) infections; Z90.710 Acquired absence of both cervix and uterus; Z90.89 Acquired absence of other organs; Z98.890 Other specified postprocedural states; Z88.8 Allergy status to other drugs, medicaments and biological substances; Z79.899 Other long term (current) drug therapy
CPT/HCPCS: 36415; 80048; 85025; 99283

== ENCOUNTER 2021-09-23 12:56 | Emergency (ER) | payer MEDICARE, MEDICAID ==
[~2021-09-23] VITALS: Ht 149.9 cm; Wt 52.0 kg
[2021-09-23] MEDS ORDERED: normal saline 1000ml 1,000 ML IV ONE (14:15)
[2021-09-23 14:33] LABS: BASOPHILS % (AUTO) 0.7 % (0-1); EOSINOPHILS # (AUTO) 0.1 X10'3 (0-0.9); HEMATOCRIT 40.2 % (35.0-45.0); HEMOGLOBIN 13.4 g/dl (12.0-16.0); LYMPHOCYTES # (AUTO) 1.2 X10'3 (1.1-4.8); LYMPHOCYTES % (AUTO) 27.1 % (21-51); MEAN CORPUSCULAR HGB CONC 33.5 g/dL (33.0-36.5); MEAN CORPUSCULAR VOLUME 89.7 FL (78-98); MEAN PLATELET VOLUME 6.6 FL (7.4-10.4); MONOCYTES # (AUTO) 0.4 X10'3 (0-0.9); MONOCYTES % (AUTO) 8.5 % (2-12); NEUTROPHILS # (AUTO) 2.8 X10'3 (1.8-7.7); NEUTROPHILS % (AUTO) 61.7 % (42-75); PLATELET COUNT 235 X10'3 (140-440); RED BLOOD COUNT 4.48 X10'6 (4.20-5.60); RED CELL DISTRIBUTION WIDTH 14.7 % (11.5-14.5); WHITE BLOOD COUNT 4.5 X10'3 (4.5-11.0)
[2021-09-23 14:38] LABS: ANION GAP 8 (8-16); BLOOD UREA NITROGEN 10 MG/DL (7-18); BUN/CREATININE RATIO 9.3 (6.6-38.0); CALCIUM 8.8 MG/DL (8.5-10.1); CHLORIDE 107 MMOL/L (99-107); CREATININE 1.08 MG/DL (0.40-0.90); GLUCOSE 105 MG/DL (70-104); POTASSIUM 3.5 MMOL/L (3.5-5.1); SODIUM 141 MMOL/L (135-145); TOTAL CARBON DIOXIDE 25.6 MMOL/L (24-32); eGFR 49 ML/MIN
[2021-09-23 16:06] VITALS: BP 135/74
== END 2021-09-23 16:23 | disposition home or self-care (01) ==
LOC: ER 12:57
DX: R42 Dizziness and giddiness (principal); E78.00 Pure hypercholesterolemia, unspecified; M19.90 Unspecified osteoarthritis, unspecified site; F31.9 Bipolar disorder, unspecified; F12.90 Cannabis use, unspecified, uncomplicated; F15.90 Other stimulant use, unspecified, uncomplicated; Z87.440 Personal history of urinary (tract) infections; Z90.710 Acquired absence of both cervix and uterus; Z98.890 Other specified postprocedural states; Z90.89 Acquired absence of other organs; Z88.8 Allergy status to other drugs, medicaments and biological substances; Z79.899 Other long term (current) drug therapy
CPT/HCPCS: 36415; 70450; 80048; 85025; 93005; 96360; 99285; J7030

== ENCOUNTER 2021-10-11 18:47 | Emergency (ER) | payer MEDICARE, MEDICAID ==
[2021-10-11 19:38] LABS: BASOPHILS % (AUTO) 0.4 % (0-1); EOSINOPHILS # (AUTO) 0.1 X10'3 (0-0.9); EOSINOPHILS % (AUTO) 1.8 % (0-6); HEMOGLOBIN 14.3 g/dl (12.0-16.0); LYMPHOCYTES # (AUTO) 1.5 X10'3 (1.1-4.8); LYMPHOCYTES % (AUTO) 27.1 % (21-51); MEAN CORPUSCULAR HEMOGLOBIN 30.4 PG (27.0-31.0); MEAN CORPUSCULAR VOLUME 89.4 FL (78-98); MEAN PLATELET VOLUME 6.7 FL (7.4-10.4); MONOCYTES # (AUTO) 0.4 X10'3 (0-0.9); MONOCYTES % (AUTO) 6.8 % (2-12); NEUTROPHILS # (AUTO) 3.5 X10'3 (1.8-7.7); NEUTROPHILS % (AUTO) 63.9 % (42-75); PLATELET COUNT 276 X10'3 (140-440); RED CELL DISTRIBUTION WIDTH 14.1 % (11.5-14.5); WHITE BLOOD COUNT 5.5 X10'3 (4.5-11.0)
--- NOTE | 2021-10-11 19:40 | NUR ---
Patient brought to bed 21 via gurney by EMS. She was able to transfer self to bed. She is A/O, and believes she is here due to confusion. Patient states that she has many stressors in her life right now, and this makes her anxious and sometimes confused on how to deal with it all. She is resting comfortably.
[2021-10-11 19:45] LABS: ALANINE AMINOTRANSFERASE 19 U/L (12-78); ALBUMIN 3.5 G/DL (3.4-5.0); ALKALINE PHOSPHATASE 102 IU/L (46-116); ANION GAP 8 (8-16); ASPARTATE AMINO TRANSFERASE 16 U/L (10-37); BILIRUBIN,TOTAL 0.4 MG/DL (0.1-1.0); BLOOD UREA NITROGEN 16 MG/DL (7-18); BUN/CREATININE RATIO 13.6 (6.6-38.0); CALCIUM 9.7 MG/DL (8.5-10.1); CHLORIDE 105 MMOL/L (99-107); CREATININE 1.18 MG/DL (0.40-0.90); GLUCOSE 102 MG/DL (70-104); POTASSIUM 3.9 MMOL/L (3.5-5.1); SODIUM 141 MMOL/L (135-145); TOTAL CARBON DIOXIDE 27.8 MMOL/L (24-32); TOTAL PROTEIN 6.9 G/DL (6.4-8.2); eGFR 44 ML/MIN
--- NOTE | 2021-10-11 20:49 | NUR ---
Patient has fallen asleep in supine position. Breathing is even and unlabored. There are no s/s of distress.
--- NOTE | 2021-10-11 21:42 | NUR ---
Urine sample collectes and sent to lab.
[2021-10-11 21:53] LABS: CLARITY,URINE SLIGHTLY CLOUDY (Clear); COLOR,URINE YELLOW (Yellow); GLUCOSE, URINE NEGATIVE (Neg); KETONES,URINE NEGATIVE (Neg); LEUKOCYTE ESTERASE ,URINE SMALL (Neg); NITRITES, URINE NEGATIVE (Neg); OCCULT BLOOD,URINE NEGATIVE (Neg); UROBILINOGEN,URINE 0.2 E.U/dL (0.2-1.0)
[2021-10-11 21:59] LABS: UA COLLECTION TYPE CLN CATCH MIDSTREAM
[2021-10-11 22:01] LABS: PROTEIN,URINE TRACE mg/dl (Neg)
[2021-10-11 22:02] LABS: SQUAMOUS EPITHELIAL CELL,UR MODERATE /LPF (FEW)
[2021-10-11 22:03] LABS: BACTERIA,URINE 1+ /HPF (Neg); RBC,URINE 0-2 /HPF (0-2)
[2021-10-11] MEDS ORDERED: nitrofuran/nitrofuran macrocrysal 100 MG capsule PO ONE (22:22)
--- NOTE | 2021-10-12 00:54 | NUR ---
Patient asleep on her left side. Breathing even and unlabored. No signs of distress.
--- NOTE | 2021-10-12 03:15 | NUR ---
Patient sleeping on her right side almost in position. Breathing unlabored. No s/s of distress.
[2021-10-12] MEDS ORDERED: LORazepam 1 MG tablet PO ONE (05:25)
--- NOTE | 2021-10-12 06:22 | NUR ---
Received patient sleeping on her left side. Respirations are even and nonlabored.
[2021-10-12] MEDS ORDERED: levoTHYROXINE 25mcg tablet PO SCH (07:00)
[2021-10-12] MEDS ORDERED: oxybutynin 5mg tablet PO SCH (08:00)
[2021-10-12] MEDS ORDERED: duloxetine 30mg CAPSULE.DR PO SCH (08:00)
[2021-10-12] MEDS ORDERED: ferrous gluconate 324mg tablet PO SCH (08:00)
--- NOTE | 2021-10-12 08:12 | NUR ---
Patient took medications without issue. Patient wondered where she is, informed her in the hospital and pt. was satisfied with this answer
[2021-10-12] MEDS ORDERED: NITR100C6 PO (08:57)
[2021-10-12 09:22] VITALS: BP 145/75
[2021-10-12] MEDS ORDERED: atorvastatin 20mg tablet PO SCH (21:00)
[2021-10-12] MEDS ORDERED: QUETIAPINE 200 MG TAB.SR.24H PO SCH (21:00)
[2021-10-12] MEDS ORDERED: traZODone 50mg tablet PO SCH (21:00)
[2021-10-12] MEDS ORDERED: donepezil 5mg tablet PO SCH (21:00)
[2021-10-12] MEDS ORDERED: lamoTRIgine 100mg tablet PO SCH (21:00)
== END 2021-10-12 09:39 | disposition home or self-care (01) ==
LOC: ER 18:47
DX: F91.9 Conduct disorder, unspecified (principal); F32.9 Major depressive disorder, single episode, unspecified; N39.0 Urinary tract infection, site not specified; F41.9 Anxiety disorder, unspecified; F12.90 Cannabis use, unspecified, uncomplicated; E78.00 Pure hypercholesterolemia, unspecified; M81.0 Age-related osteoporosis without current pathological fracture; M19.90 Unspecified osteoarthritis, unspecified site; Z87.440 Personal history of urinary (tract) infections; Z90.710 Acquired absence of both cervix and uterus; Z88.8 Allergy status to other drugs, medicaments and biological substances; Z79.899 Other long term (current) drug therapy; Z91.83 Wandering in diseases classified elsewhere
CPT/HCPCS: 36415; 70450; 71045; 80053; 81001; 85025; 87088; 99285

== ENCOUNTER 2021-10-21 11:38 | Emergency (ER) | payer MEDICARE, MEDICAID ==
[~2021-10-21] VITALS: Ht 149.9 cm; Wt 50.0 kg
[~2021-10-21 11:38] MED LIST changes: +NITR100C6 PO
[2021-10-21] MEDS ORDERED: TETanus/Pertussis (Acell)/Diphther VAC/PF (Tdap-Adult) 0.5ml syringe IMVAC ONE (14:00)
[2021-10-21] MEDS ORDERED: LIDOcaine/epinephrine/tetracaine TOPICAL sol 3 ML syringe TOP ONE (14:00)
[2021-10-21] MEDS ORDERED: FLU VACC QS2021-22(6MOS UP)/PF 60 MCG/0.5 ML SYRINGE IM ONE (15:55)
[2021-10-21 16:19] VITALS: BP 157/84
== END 2021-10-21 16:22 | disposition home or self-care (01) ==
LOC: ER 11:39
DX: S51.811A Laceration without foreign body of right forearm, initial encounter (principal); E78.00 Pure hypercholesterolemia, unspecified; M19.90 Unspecified osteoarthritis, unspecified site; F31.9 Bipolar disorder, unspecified; F15.90 Other stimulant use, unspecified, uncomplicated; F12.90 Cannabis use, unspecified, uncomplicated; Z20.3 Contact with and (suspected) exposure to rabies; Z90.710 Acquired absence of both cervix and uterus; Z87.440 Personal history of urinary (tract) infections; Z90.89 Acquired absence of other organs; Z98.890 Other specified postprocedural states; Z88.8 Allergy status to other drugs, medicaments and biological substances; Z79.899 Other long term (current) drug therapy; W01.0XXA Fall on same level from slipping, tripping and stumbling without subsequent striking against object, initial encounter; Y93.89 Activity, other specified; Y92.89 Other specified places as the place of occurrence of the external cause; Y99.8 Other external cause status
CPT/HCPCS: 73110; 90471; 90715; 96372; 99284; J3490

== ENCOUNTER 2024-07-26 12:57 | Emergency (ER) | payer MEDICARE, MEDICAID ==
[~2024-07-26] VITALS: Ht 149.9 cm; Wt 50.0 kg
[~2024-07-26 12:57] MED LIST changes: +ASPI81TA52 PO; +CYCL1DRO2 EACHEYE; +DICL20GE TOP; -DULO-31 PO; -FERR324T PO; +LEVO125T68 PO; -LEVO50TA66 PO; +MELA1TAB52 PO; +MIRT-138 PO; -NITR100C6 PO; +OMEP20TA23 PO; -QUET200T5 PO; +RISP0.5T74 PO
[2024-07-26 13:59] LABS: BILIRUBIN,URINE NEGATIVE (Neg); CLARITY,URINE CLEAR (Clear); COLOR,URINE YELLOW (Yellow); GLUCOSE, URINE NEGATIVE (Neg); KETONES,URINE NEGATIVE (Neg); LEUKOCYTE ESTERASE ,URINE NEGATIVE (Neg); NITRITES, URINE NEGATIVE (Neg); OCCULT BLOOD,URINE NEGATIVE (Neg); PH,URINE 6.5 (4.8-8.0); PROTEIN,URINE NEGATIVE (Neg); UROBILINOGEN,URINE 0.2 E.U/dL (0.2-1.0)
[2024-07-26 14:06] LABS: UA COLLECTION TYPE NON-SPECIFIED
[2024-07-26] MEDS ORDERED: METH1TAB32 PO (14:54)
[2024-07-26] MEDS ORDERED: ESTR42.53 VG (14:54)
[2024-07-26 15:06] VITALS: BP 152/80; PULSE 70; RESP 16; TEMP 98.3; O2SAT 95
== END 2024-07-26 15:08 | disposition home or self-care (01) ==
LOC: ER 12:57
DX: N23 Unspecified renal colic (principal); F12.90 Cannabis use, unspecified, uncomplicated; F15.90 Other stimulant use, unspecified, uncomplicated; E78.00 Pure hypercholesterolemia, unspecified; K21.9 Gastro-esophageal reflux disease without esophagitis; D64.9 Anemia, unspecified; M19.90 Unspecified osteoarthritis, unspecified site; F31.9 Bipolar disorder, unspecified; Z88.8 Allergy status to other drugs, medicaments and biological substances; Z79.82 Long term (current) use of aspirin; Z79.899 Other long term (current) drug therapy; Z90.710 Acquired absence of both cervix and uterus; Z98.890 Other specified postprocedural states; Z95.1 Presence of aortocoronary bypass graft
CPT/HCPCS: 81003; 99283

== ENCOUNTER 2024-08-28 09:31 | Emergency (ER) | payer MEDICARE, MEDICAID ==
[~2024-08-28] VITALS: Ht 149.9 cm; Wt 47.7 kg
[~2024-08-28 09:31] MED LIST changes: +ESTR42.53 VG; +METH1TAB32 PO
[2024-08-28] MEDS: bisacodyl 10mg suppository rectal RC STA (11:50)
[2024-08-28] MEDS: normal saline 1000ML IV soln IVB ONE (12:30)
[2024-08-28 12:48] LABS: BASOPHILS % (AUTO) 0.5 % (0-1); EOSINOPHILS # (AUTO) 0.1 X10'3 (0-0.9); EOSINOPHILS % (AUTO) 1.6 % (0-6); HEMOGLOBIN 13.9 g/dl (12.0-16.0); LYMPHOCYTES # (AUTO) 1.2 X10'3 (1.1-4.8); LYMPHOCYTES % (AUTO) 21.8 % (21-51); MEAN CORPUSCULAR HEMOGLOBIN 29.3 PG (27.0-31.0); MEAN CORPUSCULAR HGB CONC 33.1 g/dL (33.0-36.5); MEAN CORPUSCULAR VOLUME 88.5 FL (78-98); MEAN PLATELET VOLUME 6.1 FL (7.4-10.4); MONOCYTES # (AUTO) 0.6 X10'3 (0-0.9); MONOCYTES % (AUTO) 11.6 % (2-12); NEUTROPHILS # (AUTO) 3.4 X10'3 (1.8-7.7); NEUTROPHILS % (AUTO) 64.5 % (42-75); PLATELET COUNT 267 X10'3 (140-440); RED BLOOD COUNT 4.75 X10'6 (4.20-5.60); RED CELL DISTRIBUTION WIDTH 13.8 % (11.5-14.5); WHITE BLOOD COUNT 5.3 X10'3 (4.5-11.0)
[2024-08-28 12:52] LABS: ALBUMIN 3.6 G/DL (3.4-5.0); ANION GAP 5 (8-16); BLOOD UREA NITROGEN 11 MG/DL (7-18); CALCIUM 9.2 MG/DL (8.5-10.1); CHLORIDE 96 MMOL/L (99-107); CREATININE 0.92 MG/DL (0.40-0.90); GLUCOSE 100 MG/DL (70-104); LIPASE 58 U/L (16-77); MAGNESIUM 2.2 MG/DL (1.5-2.4); POTASSIUM 3.5 MMOL/L (3.5-5.1); SODIUM 131 MMOL/L (135-145); TOTAL CARBON DIOXIDE 29.7 MMOL/L (24-32); eCRCL 32 ML/MIN; eGFR 58 ML/MIN
[2024-08-28] MEDS ORDERED: iohexol 300mg/ml 100ml inj. ONE (13:04)
[2024-08-28 15:15] VITALS: BP 178/99; PULSE 73; RESP 15; TEMP 97.5; O2SAT 98
== END 2024-08-28 15:17 | disposition home or self-care (01) ==
LOC: ER 09:31
DX: K59.00 Constipation, unspecified (principal); E78.00 Pure hypercholesterolemia, unspecified; K21.9 Gastro-esophageal reflux disease without esophagitis; E07.9 Disorder of thyroid, unspecified; M19.90 Unspecified osteoarthritis, unspecified site; F31.9 Bipolar disorder, unspecified; F12.90 Cannabis use, unspecified, uncomplicated; F15.90 Other stimulant use, unspecified, uncomplicated; D64.9 Anemia, unspecified; Z88.8 Allergy status to other drugs, medicaments and biological substances; Z79.82 Long term (current) use of aspirin; Z79.899 Other long term (current) drug therapy; Z90.710 Acquired absence of both cervix and uterus; Z98.890 Other specified postprocedural states; Z95.1 Presence of aortocoronary bypass graft
CPT/HCPCS: 36415; 74018; 74177; 80048; 83690; 83735; 85025; 96360; 99285; J7030; Q9967

== ENCOUNTER 2024-09-14 16:16 | Emergency (ER) | payer MEDICARE, MEDICAID ==
[~2024-09-14] VITALS: Ht 149.9 cm; Wt 52.0 kg
[2024-09-14] MEDS: LIDOcaine 1% W/epiNEPHrine 1:100,000 20ml vial IJ ONE (17:15)
[2024-09-14] MEDS ORDERED: CEPH-585 PO (18:13)
[2024-09-14] MEDS: levoFLOXACIN 250mg tablet PO ONE (19:14)
[2024-09-14 19:19] VITALS: BP 165/94; PULSE 76
[2024-09-14 21:33] VITALS: RESP 16; TEMP 98.2; O2SAT 97
[2024-09-15] MEDS ORDERED: MIRT-87 PO (14:25)
[2024-09-15] MEDS ORDERED: MIRT-88 PO (14:25)
[2024-09-15] MEDS ORDERED: BUSP10TA3 PO (14:25)
[2024-09-15] MEDS ORDERED: HYDR-3686 PO (14:45)
[2024-09-15] MEDS ORDERED: DONE10TA44 PO (14:45)
[2024-09-15] MEDS ORDERED: CALC-157 PO (14:45)
[2024-09-15] MEDS ORDERED: OMEP10CA5 (14:45)
[2024-09-15] MEDS ORDERED: OMEP10CA5 PO (15:02)
[2024-09-17] MEDS ORDERED: DUPI300P IM (15:25)
== END 2024-09-14 21:35 | disposition home or self-care (01) ==
LOC: ER 16:16
DX: S61.421A Laceration with foreign body of right hand, initial encounter (principal); S41.021A Laceration with foreign body of right shoulder, initial encounter; S81.021A Laceration with foreign body, right knee, initial encounter; S01.81XA Laceration without foreign body of other part of head, initial encounter; E78.00 Pure hypercholesterolemia, unspecified; K21.9 Gastro-esophageal reflux disease without esophagitis; M19.90 Unspecified osteoarthritis, unspecified site; E07.9 Disorder of thyroid, unspecified; F31.9 Bipolar disorder, unspecified; D64.9 Anemia, unspecified; F12.90 Cannabis use, unspecified, uncomplicated; Z90.710 Acquired absence of both cervix and uterus; Z98.890 Other specified postprocedural states; Z88.8 Allergy status to other drugs, medicaments and biological substances; Z88.6 Allergy status to analgesic agent; Z79.2 Long term (current) use of antibiotics; Z79.899 Other long term (current) drug therapy; W01.0XXA Fall on same level from slipping, tripping and stumbling without subsequent striking against object, initial encounter; Y93.01 Activity, walking, marching and hiking; Y92.480 Sidewalk as the place of occurrence of the external cause; Y99.8 Other external cause status
CPT/HCPCS: 12001; 12032; 12041; 99284; A4565; A6258; A6449